=== PATIENT | male | born 1975 | race Caucasian/White ===

== ENCOUNTER 2019-05-12 20:27 | Emergency (ER) | payer MEDICAID ==
[~2019-05-12] VITALS: Ht 172.7 cm; Wt 122.5 kg
[2019-05-12 20:35] VITALS: BP_SYST 157
--- NOTE | 2019-05-12 20:35 | NUR ---
Patient triaged and placed in waiting room. VSS and patient appears in no acute distress at this time. Accompanied by SELF, awaiting available bed, and MD notified of need for MSE.
--- NOTE | 2019-05-12 21:17 | NUR ---
Patient to ER bed [address] to gown for evaluation. Side rails up. Report given to MICAH VALENTINE.
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
--- NOTE | 2019-05-12 21:28 | NUR ---
ER MD Menjivar at bedside for medical evaluation.
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
[2019-05-12] MEDS ORDERED: IBUPROFEN 600 MG TABLET PO ONE (21:45)
--- NOTE | 2019-05-12 22:30 | NUR ---
No adverse reactions noted after medication administration. Will continue to monitor.
[2019-05-12 23:50] VITALS: BP_SYST 134
--- NOTE | 2019-05-12 23:50 | NUR ---
Patient given written and verbal discharge instructions and verbalizes understanding. ER MD discussed with patient the results and treatment provided. Patient in stable condition. ID arm band removed. Rx of Ibuprofen given. Patient educated on pain management and to follow up with PMD. Pain Scale 2/10 tolerable to patient. Opportunity for questions provided and answered. Medication side effect fact sheet provided. Homeless packet and food provided. Patient states no taxi voucher required at this time.
== END 2019-05-12 23:50 | disposition home or self-care (01) ==
LOC: SED 20:27
DX: S40.012A Contusion of left shoulder, initial encounter (principal); S40.022A Contusion of left upper arm, initial encounter; I11.0 Hypertensive heart disease with heart failure; I50.9 Heart failure, unspecified; R51 Headache; Y04.0XXA Assault by unarmed brawl or fight, initial encounter; Y93.89 Activity, other specified; Y92.89 Other specified places as the place of occurrence of the external cause; Y99.8 Other external cause status
CPT/HCPCS: 72100-TC; 73030; 73090; 99283